=== PATIENT | female | born 1950 | race Caucasian/White ===

== ENCOUNTER 2021-03-06 13:33 | Observation (INO) | payer MEDICARE ==
[~2021-03-06] VITALS: Ht 165.1 cm; Wt 78.6 kg
[~2021-03-06 13:33] MED LIST: ACET-1600 PO; ASPI-963 PO; ASPI81TA45 PO; ATOR10TA9 PO; ATOR20TA37 PO; CALC-451 PO; CLOR15TA PO; CYCL1DRO IO; DOCU-131 PO; ENOX30DI3 SQ; FURO40TA6 PO; HUMALOG; INSULIN PUMP; LEVO25TA2 PO; LEVO50TA PO; LEVO50TA5 PO; MAGN400O7 PO; MELO10CA3 PO; METF500T PO; METF500T17 PO; NORT25CA2 PO; NORT50CA52 PO; OMEP-110 PO; PRIM50TA34 PO; TEMA15CA PO; TRAM50TA2 PO
[2021-03-06 14:19] LABS: BASOPHILS % (AUTO) 1 % (0-1); EOSINOPHILS % (AUTO) 2 % (1-7); LYMPHOCYTES % (AUTO) 23 % (22-44); MEAN CORPUSCULAR HEMOGLOBIN 32.2 pg (27.0-34.8); MEAN CORPUSCULAR HGB CONC 33.9 g/dL (32.4-35.8); MEAN PLATELET VOLUME 9.8 fL (7.4-10.4); MONOCYTES % (AUTO) 7 % (2-9); NEUTROPHILS % (AUTO) 66 % (42-75); PLATELET COUNT 360 x10^3/uL (130-400); RED BLOOD COUNT 2.98 x10^6/uL (3.82-5.3); RED CELL DISTRIBUTION WIDTH 14.1 % (9.6-15.2)
[2021-03-06 14:30] LABS: ALBUMIN 2.8 g/dL (3.4-5.0); ANION GAP 11 mmol/L (5-15); CALCIUM 8.1 mg/dL (8.5-10.1); CHLORIDE 109 mmol/L (98-107); CREATININE 1.26 mg/dL (0.55-1.02)
[2021-03-06 14:33] LABS: TROPONIN I < 0.015 ng/mL (0.000-0.045)
--- NOTE | 2021-03-06 15:07 | NUR ---
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
--- NOTE | 2021-03-06 16:41 | NUR ---
PT IN MRI, WILL DO ST CATH WHEN PT BACK IN DEPT.
--- NOTE | 2021-03-06 17:07 | NUR ---
ST ANIBAL RICHARDSON WALKED TO LAB.
--- NOTE | 2021-03-06 17:18 | NUR ---
[place] [facility] [place] AND [place] RESULTS. FAMILY AT .
[2021-03-06 18:06] LABS: MICROSCOPIC NOT IND
--- NOTE | 2021-03-06 18:16 | NUR ---
ALL RESULTS BACK, PT FOR RECHECK.
--- NOTE | 2021-03-06 19:09 | NUR ---
REPORT TO GARCÍA ROSADO, TRANSFER OF CARE AT THIS TIME.
[2021-03-06] MEDS ORDERED: ONDANSETRON 2MG/ML, 2ML IVPush PRN (19:30)
[2021-03-06] MEDS ORDERED: ENALAPRILAT 1.25 MG/ML, 2ML IVPush PRN (19:30)
[2021-03-06] MEDS ORDERED: HYDROcodone/APAP 5/325 TABLET PO PRN (19:30)
[2021-03-06] MEDS ORDERED: ACETAMINOPHEN 325 MG TABLET PO PRN (19:30)
[2021-03-06] MEDS ORDERED: BUTALB/APAP/CAFFEINE 50MG/325MG/40MG PO PRN (19:30)
[2021-03-06] MEDS ORDERED: DOCUSATE 100 MG CAPSULE PO PRN (19:30)
[2021-03-06] MEDS ORDERED: GUAIFENESIN/DM 200-20MG, 10ML UDC PO PRN (19:30)
[2021-03-06] MEDS ORDERED: BACLOFEN 10 MG TABLET PO PRN (19:30)
--- NOTE | 2021-03-06 19:46 | NUR ---
PT OFF UNIT IN IMAGING.
--- NOTE | 2021-03-06 20:14 | NUR ---
GAVE REPORT TO JULIO ROSADO.
[2021-03-06] MEDS ORDERED: ENOXAPARIN 40 MG/0.4 ML SQ SCH (21:00)
[2021-03-06] MEDS: TEMPLATE NON-FORMULARY MED. (Cyclosporine (Restasis) 1 DROP) OP SCH (21:00)
[2021-03-06] MEDS ORDERED: NORTRIPTYLINE 50 MG CAPSULE PO SCH (21:00)
[2021-03-06] MEDS ORDERED: TEMAZEPAM 15 MG CAPSULE PO SCH (21:00)
[2021-03-06 21:21] VITALS: BP 158/79
[2021-03-06] MEDS: PRIMIDONE 50 MG TABLET PO SCH (22:08)
[2021-03-06] MEDS: CLORAZEPATE 15 MG PO SCH (22:08)
[2021-03-06] MEDS: SODIUM CHLORIDE 0.9% 1,000 ML IV SCH (22:11)
[2021-03-07 05:08] LABS: BASOPHILS % (AUTO) 1 % (0-1); EOSINOPHILS % (AUTO) 4 % (1-7); LYMPHOCYTES % (AUTO) 27 % (22-44); MEAN CORPUSCULAR HEMOGLOBIN 33.6 pg (27.0-34.8); MEAN CORPUSCULAR HGB CONC 35.2 g/dL (32.4-35.8); MEAN PLATELET VOLUME 9.9 fL (7.4-10.4); MONOCYTES % (AUTO) 10 % (2-9); NEUTROPHILS % (AUTO) 59 % (42-75); PLATELET COUNT 355 x10^3/uL (130-400); RED BLOOD COUNT 2.97 x10^6/uL (3.82-5.3); RED CELL DISTRIBUTION WIDTH 14.5 % (9.6-15.2)
[2021-03-07 05:11] LABS: CHLORIDE 110 mmol/L (98-107)
[2021-03-07 05:49] LABS: % IRON SATURATION 36 % (20-55); ANION GAP 6 mmol/L (5-15); CALCIUM 7.9 mg/dL (8.5-10.1); CREATININE 1.41 mg/dL (0.55-1.02); IRON LEVEL 59 mcg/dL (50-170); TOTAL IRON BINDING CAPACITY 165 mcg/dL (250-450)
[2021-03-07] MEDS ORDERED: LEVOTHYROXINE 50 MCG TABLET PO SCH (06:00)
[2021-03-07] MEDS ORDERED: metFORMIN 500 MG TABLET PO SCH ×2 (08:00→17:00)
[2021-03-07] MEDS: SODIUM CHLORIDE 0.9% 1,000 ML IV SCH (08:36)
[2021-03-07] MEDS: TEMPLATE NON-FORMULARY MED. (Cyclosporine (Restasis) 1 DROP) OP SCH (08:43)
[2021-03-07 08:53] VITALS: BP 148/76
[2021-03-07] MEDS ORDERED: CALCIUM/VITAMIN D3 250-125 TABLET PO SCH (09:00)
[2021-03-07] MEDS ORDERED: OMEPRAZOLE 20 MG CAPSULE.DR PO SCH (09:00)
[2021-03-07] MEDS ORDERED: FLUOXETINE HCL 20 MG CAPSULE PO SCH (09:00)
[2021-03-07] MEDS ORDERED: ASPIRIN 81 MG TABLET EC PO SCH (09:00)
[2021-03-07] MEDS ORDERED: ATORVASTATIN 10 MG TABLET PO SCH ×2 (09:00→21:00)
[2021-03-07 12:28] VITALS: BP 144/76
[2021-03-07] MEDS: PRIMIDONE 50 MG TABLET PO SCH (12:42)
[2021-03-07] MEDS: CLORAZEPATE 15 MG PO SCH (13:04)
== END 2021-03-07 18:04 | disposition home or self-care (01) ==
LOC: ED 14:00 → EDIP 18:27 → INTOOBSV 18:27 → 3N 20:35
PROVIDERS: ADMIT Internal Medicine; ATTEND Hospitalist
DX: R53.1 Weakness (principal); R29.6 Repeated falls; K21.9 Gastro-esophageal reflux disease without esophagitis; N17.9 Acute kidney failure, unspecified; R60.0 Localized edema; I10 Essential (primary) hypertension; E78.5 Hyperlipidemia, unspecified; E11.9 Type 2 diabetes mellitus without complications; R32 Unspecified urinary incontinence; F41.8 Other specified anxiety disorders; E03.9 Hypothyroidism, unspecified; R25.1 Tremor, unspecified; E87.8 Other disorders of electrolyte and fluid balance, not elsewhere classified; D64.9 Anemia, unspecified; M48.02 Spinal stenosis, cervical region; M48.061 Spinal stenosis, lumbar region without neurogenic claudication; M48.56XA Collapsed vertebra, not elsewhere classified, lumbar region, initial encounter for fracture; Z91.81 History of falling; Z87.891 Personal history of nicotine dependence; Z98.84 Bariatric surgery status; Z79.899 Other long term (current) drug therapy
CPT/HCPCS: 36415; 70450; 70551; 71045; 72125; 72131; 72148; 80048; 81003; 82040; 82607; 82728; 83540; 83550; 83735; 84100; 84443; 84484; 85025; 93005; 96360; 96361; 96372; 97163; 97166; 99285; G0378; J1650; J7030

== ENCOUNTER 2021-03-19 15:05 | Emergency (ER) | payer MEDICARE ==
[~2021-03-19] VITALS: Ht 162.6 cm; Wt 83.6 kg
[2021-03-19] MEDS ORDERED: ADENOSINE 6 MG/2 ML ONE (15:16)
--- NOTE | 2021-03-19 15:32 | NUR ---
PT WAS SENT FROM HER PCP. "THEY SAID MY HR WAS 204". PT CO OF WEAKNESS AND SOB. EKG COMPLETED. NOTIFIED. IV STARTED. LABS DRAWN. PACER PADS PLACED ON PT. 6MG ADENOSINE GIVEN IV WITH MD IN ROOM. PT CONVERTED TO SINUS TACH - 114. PT RESTING IN GURNEY. SAYS SHE FEELS BETTER. RESTING IN [place] ENGLISH.
[2021-03-19 15:36] LABS: MEAN CORPUSCULAR HEMOGLOBIN 31.7 pg (27.0-34.8); MEAN CORPUSCULAR HGB CONC 33.4 g/dL (32.4-35.8); MEAN PLATELET VOLUME 10.1 fL (7.4-10.4); PLATELET COUNT 501 x10^3/uL (130-400); RED CELL DISTRIBUTION WIDTH 14.5 % (9.6-15.2)
[2021-03-19 15:45] LABS: ALANINE AMINOTRANSFERASE 22 U/L (12-78); ALBUMIN 3.1 g/dL (3.4-5.0); ANION GAP 10 mmol/L (5-15); CALCIUM 8.6 mg/dL (8.5-10.1); CHLORIDE 107 mmol/L (98-107)
[2021-03-19 15:49] LABS: ALKALINE PHOSPHATASE 114 U/L (45-117); BILIRUBIN,TOTAL 0.3 mg/dL (0.2-1.0); TOTAL PROTEIN 7.3 g/dL (6.4-8.2); TROPONIN I < 0.015 ng/mL (0.000-0.045)
[2021-03-19] MEDS ORDERED: PLEASE ENTER HEIGHT AND WEIGHT MC SCH (16:00)
[2021-03-19] MEDS ORDERED: ADENOSINE 6 MG/2 ML IVPush ONE (16:00)
[2021-03-19 16:14] LABS: BASOS#(MANUAL) 0.13 x10^3/uL (0-0.1); BASOS% (MANUAL) 1 % (0-1); EOS#(MANUAL) 0.13 x10^3/uL (0.0-0.4); EOS% (MANUAL) 1 % (1-7); LYMPH#(MANUAL) 3.74 x10^3/uL (1-3.4); LYMPHS% (MANUAL) 29 % (22-44); MONOS#(MANUAL) 0.39 x10^3/uL (0.3-2.7); MONOS% (MANUAL) 3 % (2-9); SEG#(MANUAL) 8.51 x10^3/uL (1.8-6.8); SEGS% (MANUAL) 66 % (42-75)
[2021-03-19 16:15] LABS: <PLATELET ESTIMATE> INCREASED; <PLT MORPHOLOGY> NORMAL PLT MORPH; ANISOCYTOSIS 1+; MICROCYTOSIS 1+
--- NOTE | 2021-03-19 16:17 | NUR ---
PT A&OX4, CALM, LYING IN GURNEY, NO SIGNS OF DISTRESS AT THIS TIME. HR 100s, SINUS TACH. COUSIN AT BS.
--- NOTE | 2021-03-19 17:09 | NUR ---
ASSISTED PT UP TO [facility] [place]. PT IS 1-2 PERSON ASSIST. PT VOIDED AND HAD LARGE SOFT BM. ASSISTED PT BACK TO BED. VSS. CHART UP FOR RECHECK. COUSIN REMAINS AT BS.
[2021-03-19 18:20] VITALS: BP 155/89
--- NOTE | 2021-03-19 18:45 | NUR ---
D/C INSTRUCTIONS & F/U APPT RV'WD WITH PT AND COUSIN. INSTRUCTED PT TO RETURN TO ED FOR RAPID HR, SOB, OR ANY OTHER CONCERNING SYMPTOMS. ASSISTED OUT OF ED VIA WC WITH COUSIN.
[2021-03-25] MEDS ORDERED: TRAM50TA2 PO (17:14)
[2021-03-25] MEDS ORDERED: FLUO20CA23 PO (17:14)
[2021-03-25] MEDS ORDERED: HYDR-2214 PO (17:14)
[2021-03-25] MEDS ORDERED: LEVE250T5 PO (17:14)
== END 2021-03-19 18:55 | disposition home or self-care (01) ==
LOC: ED 15:16
DX: I47.1 Supraventricular tachycardia (principal); R42 Dizziness and giddiness; R06.02 Shortness of breath; I10 Essential (primary) hypertension; E11.9 Type 2 diabetes mellitus without complications; Z87.891 Personal history of nicotine dependence; Z86.39 Personal history of other endocrine, nutritional and metabolic disease
CPT/HCPCS: 36415; 71045; 80053; 80320; 83735; 84443; 84484; 85025; 93005; 96374; 99285; J0153; 96372; G0480